=== PATIENT | female | born 1970 | race Caucasian/White ===

== ENCOUNTER 2017-01-24 23:35 | Emergency (ER) | payer MEDICAID ==
[~2017-01-24] VITALS: Ht 167.6 cm; Wt 65.8 kg
[2017-01-24 23:35] VITALS: BP 150/88; PULSE 100; RESP 20; TEMP 97.4; O2SAT 98
[~2017-01-24 23:35] MED LIST: BUSP10TA PO; CELE200C PO; ELA10; ESOM40CA PO; FERR1TAB; FERR325T30 PO; FOLI-43 PO; METH2.5T PO; NORG7TAB2 PO; PRED2.5T4; PRED5TAB PO; PRED5TAB3 PO; dexilant
--- NOTE | 2017-01-24 23:35 | NUR ---
Patient to ER bed 8 to gown for evaluation. Side rails up. Report given to SHOBHA ELDRIDGE.
--- NOTE | 2017-01-24 23:40 | NUR ---
PT IS AOX4, C/O COUGH X 2 DAYS. PT IS AFEBRILE AND DENIES N/V/D. PAIN SCALE 6/10.
--- NOTE | 2017-01-25 | NUR ---
ER at bedside examining patient.
[2017-01-25] MEDS ORDERED: AMOXICILLIN 500 MG CAPSULE PO ONE (00:45)
[2017-01-25 01:05] VITALS: BP 138/75; PULSE 86; RESP 20; TEMP 97.4; O2SAT 98
--- NOTE | 2017-01-25 01:05 | NUR ---
Patient given written and verbal discharge instructions and verbalizes understanding. ER MD discussed with patient the results and treatment provided. Patient in stable condition. ID arm band removed. Rx of AMOXICILLIN 500 MG given. Patient educated on pain management and to follow up with PMD. Pain Scale 0/10. Opportunity for questions provided and answered.
== END 2017-01-25 01:05 | disposition home or self-care (01) ==
LOC: SED 23:35
DX: J40 Bronchitis, not specified as acute or chronic (principal); M06.9 Rheumatoid arthritis, unspecified
CPT/HCPCS: 99283

== ENCOUNTER 2017-05-12 02:18 | Emergency (ER) | payer MEDICAID ==
[~2017-05-12] VITALS: Ht 167.6 cm; Wt 66.7 kg
[~2017-05-12 02:18] MED LIST changes: -ESOM40CA PO; -FOLI-43 PO; -METH2.5T PO; -NORG7TAB2 PO; -PRED5TAB PO; -PRED5TAB3 PO
[2017-05-12 02:20] VITALS: BP_SYST 133
[2017-05-12] MEDS ORDERED: KETOROLAC TROMETHAMINE 60 MG/2 ML VIAL IM ONE (03:30)
[2017-05-12 04:00] VITALS: BP_SYST 133
[2017-05-12] MEDS ORDERED: NACL 0.9% 1,000 ML IV SCH (04:00)
[2017-05-12] MEDS ORDERED: PIPERACILLIN/TAZO 3.375 GM in NS 50 ML IV SCH (06:00)
== END 2017-05-12 04:00 | disposition home or self-care (01) ==
LOC: SED 02:18
DX: S80.01XA Contusion of right knee, initial encounter (principal); M06.9 Rheumatoid arthritis, unspecified; V87.8XXA Person injured in other specified noncollision transport accidents involving motor vehicle (traffic), initial encounter; Y93.55 Activity, bike riding; Y92.89 Other specified places as the place of occurrence of the external cause; Y99.8 Other external cause status
CPT/HCPCS: 29505; 73564; 96372; 99284; J1885

== ENCOUNTER 2017-10-27 22:38 | Emergency (ER) | payer MEDICAID ==
[~2017-10-27] VITALS: Ht 167.6 cm; Wt 68.0 kg
[2017-10-27 22:43] VITALS: BP_SYST 122
[2017-10-28] MEDS ORDERED: NACL 0.9% 1,000 ML IV ONE (00:18)
[2017-10-28 00:27] LABS: BILIRUBIN,URINE NEGATIVE (NEGATIVE); BLOOD, URINE NEGATIVE (NEGATIVE); CLARITY/URINE CLEAR (CLEAR); COLOR,URINE YELLOW (YELLOW); GLUCOSE,URINE NEGATIVE (NEGATIVE); KETONES,URINE TRACE (NEGATIVE); LEUKOCYTE ESTERASE ,URINE NEGATIVE (NEGATIVE); NITRITE, URINE NEGATIVE (NEGATIVE); PROTEIN URINE NEGATIVE (NEGATIVE); UROBILINOGEN,URINE 0.2 (0.2-1.0)
[2017-10-28] MEDS ORDERED: KETOROLAC TROMETHAMINE 30 MG VIAL IVP ONE (00:30)
[2017-10-28 00:43] LABS: BASOPHILS # (AUTO) 0.1 K/uL (0.0-0.2); BASOPHILS % (AUTO) 2.4 % (0.0-2.0); EOSINOPHILS % (AUTO) 0.2 % (0.0-4.0); LYMPHOCYTES # (AUTO) 0.8 K/uL (1.0-5.5); LYMPHOCYTES % (AUTO) 14.9 % (20.5-51.5); MEAN CORPUSCULAR HEMOGLOBIN 28 pg (27-31); MEAN CORPUSCULAR HGB CONC 32 % (32-36); MEAN CORPUSCULAR VOLUME 86 fL (79.0-98.0); MONOCYTES # (AUTO) 0.7 K/uL (0.0-1.0); MONOCYTES % (AUTO) 12.1 % (1.7-9.3); NEUTROPHILS # (AUTO) 3.9 K/uL (1.8-7.7); NEUTROPHILS % (AUTO) 70.4 % (40.0-70.0); PLATELET COUNT (AUTO) 303 K/uL (130-430); RED BLOOD CELL COUNT(AUTO) 4.29 MIL/uL (4.2-6.2); RED CELL DISTRIBUTION WIDTH 13.5 % (9.0-15.0); WHITE BLOOD COUNT (AUTO) 5.5 K/uL (4.8-10.8)
[2017-10-28 00:52] LABS: CALCIUM 8.6 mg/dL (8.4-11.0); CREATININE 0.78 mg/dL (0.55-1.30); POTASSIUM 4.1 mmol/L (3.5-5.1)
[2017-10-28 02:30] VITALS: BP_SYST 125
== END 2017-10-28 02:30 | disposition home or self-care (01) ==
LOC: SED 22:38
DX: R10.9 Unspecified abdominal pain (principal); M06.9 Rheumatoid arthritis, unspecified
CPT/HCPCS: 36415; 74176; 80048; 81003; 81025; 85025; 96361; 96374; 99285; J1885; J7030

== ENCOUNTER 2018-10-31 08:27 | Emergency (ER) | payer MEDICAID ==
[~2018-10-31] VITALS: Ht 167.6 cm; Wt 68.0 kg
--- NOTE | 2018-10-31 08:30 | NUR ---
ER at bedside examining patient.
[2018-10-31 08:31] VITALS: BP_SYST 164
--- NOTE | 2018-10-31 08:37 | NUR ---
Patient to ER bed 6 to gown for evaluation. Side rails up. Report given to Glynn ELDRIDGE.
--- NOTE | 2018-10-31 09:15 | NUR ---
Pt prsents to ED c/o coughx 1 month worsening x 1month
--- NOTE | 2018-10-31 09:20 | NUR ---
Lab at bedside for evaluation
--- NOTE | 2018-10-31 10:15 | NUR ---
Patient given written and verbal discharge instructions and verbalizes understanding. ER MD discussed with patient the results and treatment provided. Patient in stable condition. ID arm band removed. Rx of prednisone given. Patient educated on pain management and to follow up with PMD. Pain Scale 0. Opportunity for questions provided and answered. Medication side effect fact sheet provided.
[2018-10-31 10:30] VITALS: BP_SYST 158
== END 2018-10-31 10:30 | disposition home or self-care (01) ==
LOC: SED 08:27
DX: J30.9 Allergic rhinitis, unspecified (principal); R05 Cough; M06.9 Rheumatoid arthritis, unspecified; Z79.899 Other long term (current) drug therapy
CPT/HCPCS: 71045; 99283

== ENCOUNTER 2022-08-07 21:57 | Emergency (ER) | payer MEDICAID ==
[~2022-08-07] VITALS: Ht 167.6 cm; Wt 77.1 kg
[2022-08-07 22:19] VITALS: BP_SYST 141
--- NOTE | 2022-08-07 22:24 | NUR ---
Patient to ER tent for evaluation.
--- NOTE | 2022-08-07 22:24 | NUR ---
patient brought by partner complaining of dry cough x5 days. Patient denies any shortness of breath, patient reports having low-grade fever of 99.2. Patient is speaking full sentences. no acute distress noted. vss
--- NOTE | 2022-08-07 22:26 | NUR ---
ER at bedside examining patient.
[2022-08-07] MEDS ORDERED: DOXY100C5 PO ×3 (22:44→22:55)
--- NOTE | 2022-08-07 23:01 | NUR ---
Patient given written and verbal discharge instructions and verbalizes understanding. ER MD discussed with patient the results and treatment provided. Patient in stable condition. ID arm band removed. Rx of doxycline given. Patient educated on pain management and to follow up with PMD. Pain Scale 0/10 Opportunity for questions provided and answered. Medication side effect fact sheet provided.
[2022-08-07 23:10] VITALS: BP_SYST 141
== END 2022-08-07 23:10 | disposition home or self-care (01) ==
LOC: SED 21:57
DX: R05.9 Cough, unspecified (principal); R50.9 Fever, unspecified; Z79.899 Other long term (current) drug therapy; Z20.822 Contact with and (suspected) exposure to COVID-19
CPT/HCPCS: 36415; 99283

== ENCOUNTER 2023-04-27 01:02 | Emergency (ER) | payer MEDICAID ==
[~2023-04-27] VITALS: Ht 167.6 cm; Wt 77.1 kg
[~2023-04-27 01:02] MED LIST changes: +DOXY100C5 PO
[2023-04-27 01:31] VITALS: BP_SYST 136
--- NOTE | 2023-04-27 01:31 | NUR ---
Triaged and placed patient back to the waiting room. No acute respiratory distress at this time. VSS. Informed patient to notify ED staff for any changes in condition or worsening of symptoms while waiting to be seen by a provider. Patient verbalized understanding.
[2023-04-27 02:15] LABS: BILIRUBIN,URINE 1+ (NEGATIVE); BLOOD, URINE NEGATIVE (NEGATIVE); COLOR,URINE YELLOW (YELLOW); GLUCOSE,URINE NEGATIVE (NEGATIVE); KETONES,URINE NEGATIVE (NEGATIVE); LEUKOCYTE ESTERASE ,URINE NEGATIVE (NEGATIVE); NITRITE, URINE NEGATIVE (NEGATIVE); PROTEIN URINE 1+ (NEGATIVE); UROBILINOGEN,URINE 0.2 (0.2-1.0)
--- NOTE | 2023-04-27 02:24 | NUR ---
Patient placed in Triage room for MD evaluation.
--- NOTE | 2023-04-27 02:25 | NUR ---
Dr. SOTELO in triage room examining the patient.
[2023-04-27 02:33] LABS: CLARITY/URINE HAZY (CLEAR)
--- NOTE | 2023-04-27 02:35 | NUR ---
Patient taken to CT.
[2023-04-27 02:42] LABS: BACTERIA,URINE None Seen /HPF (None Seen); HYALINE CASTS, URINE 0-10 /LPF (None Seen); RBC,URINE 0-3 /HPF (0-3)
--- NOTE | 2023-04-27 02:43 | NUR ---
PATIENT IS BACK FROM CT.
--- NOTE | 2023-04-27 03:02 | NUR ---
PATIENT IS TAKEN TO LABORATORY FOR A BLOOD DRAW.
--- NOTE | 2023-04-27 03:07 | NUR ---
PATIENT IS BACK FROM LABORATORY.
[2023-04-27 03:20] LABS: BASOPHILS % (AUTO) 0.3 % (0.0-2.0); EOSINOPHILS # (AUTO) 0.2 K/uL (0.0-0.4); HEMATOCRIT 36.8 % (36-48); HEMOGLOBIN 12.1 g/dL (12.0-16.0); LYMPHOCYTES # (AUTO) 2.2 K/uL (1.0-5.5); LYMPHOCYTES % (AUTO) 28.4 % (20.5-51.5); MEAN CORPUSCULAR HEMOGLOBIN 29 pg (27-31); MEAN CORPUSCULAR HGB CONC 33 % (32-36); MEAN CORPUSCULAR VOLUME 87 fL (79.0-98.0); MONOCYTES # (AUTO) 0.8 K/uL (0.0-1.0); MONOCYTES % (AUTO) 10.4 % (1.7-9.3); NEUTROPHILS # (AUTO) 4.5 K/uL (1.8-7.7); NEUTROPHILS % (AUTO) 58.9 % (40.0-70.0); PLATELET COUNT (AUTO) 322 K/uL (130-430); RED BLOOD CELL COUNT(AUTO) 4.22 MIL/uL (4.2-6.2); WHITE BLOOD COUNT (AUTO) 7.6 K/uL (4.8-10.8)
[2023-04-27] MEDS ORDERED: ONDANSETRON HCL 4 MG/2 ML VIAL IVP ONE (03:30)
[2023-04-27] MEDS ORDERED: NACL 0.9% 1,000 ML IV ONE (03:30)
[2023-04-27] MEDS ORDERED: cephALEXin 500 MG CAPSULE PO ONE (03:30)
[2023-04-27] MEDS ORDERED: TAMSULOSIN HCL 0.4 MG CAP PO ONE (03:30)
[2023-04-27] MEDS ORDERED: MORPHINE 2 MG/ML INJ. SYRINGE IVP ONE (03:30)
[2023-04-27 03:33] LABS: ALBUMIN 3.5 g/dL (3.4-4.8); CALCIUM 9.8 mg/dL (8.4-11.0); CREATININE 0.91 mg/dL (0.55-1.30); TOTAL BILIRUBIN 0.1 mg/dL (0.0-1.0)
[2023-04-27] MEDS ORDERED: TAMSULOSIN HCL 0.4 MG CAP ONE (04:01)
[2023-04-27] MEDS ORDERED: CEPH-548 PO (05:09)
[2023-04-27] MEDS ORDERED: PHEN-726 PO (05:10)
[2023-04-27] MEDS ORDERED: LIDO1ADH22 TP (05:12)
[2023-04-27] MEDS ORDERED: ACET-2634 PO (05:12)
[2023-04-27 05:45] VITALS: BP_SYST 148
--- NOTE | 2023-04-27 05:45 | NUR ---
Patient given written and verbal discharge instructions and verbalizes understanding. ER MD discussed with patient the results and treatment provided. Patient in stable condition. ID arm band removed. IV catheter removed intact and dressing applied, no active bleeding. Rx of ACETAMINOPHEN, CEPHALEXIN, LIDOPRO PATCH. AND PYRIDIUM given. Patient educated on pain management and to follow up with PMD. Pain Scale 0/10. Opportunity for questions provided and answered. Medication side effect fact sheet provided.
== END 2023-04-27 05:45 | disposition home or self-care (01) ==
LOC: SED 01:02
DX: N20.1 Calculus of ureter (principal); I10 Essential (primary) hypertension; R30.0 Dysuria; M54.50 Low back pain, unspecified; R11.0 Nausea; Z79.899 Other long term (current) drug therapy
CPT/HCPCS: 99285; 74176; 96374; 96361; 96375; 80053; 81000; 83690; 85025; 87086; 36415; 76376; J2405; J2270; J7030

== ENCOUNTER 2024-03-17 16:30 | Emergency (ER) | payer MEDICAID ==
[~2024-03-17] VITALS: Ht 167.6 cm; Wt 77.1 kg
[~2024-03-17 16:30] MED LIST changes: +ACET-2634 PO; +CEPH-548 PO; +LIDO1ADH22 TP; +PHEN-726 PO
[2024-03-17 16:45] VITALS: BP_SYST 156; PULSE 89; RESP 18; TEMP 98.3; O2SAT 100
[2024-03-17] MEDS: guaiFENesin/DEXTROMETHORPHAN 10 ML UDC PO ONE (17:21)
[2024-03-17] MEDS: AZITHROMYCIN 250 MG TABLET PO ONE (17:39)
[2024-03-17 17:52] LABS: INFLUENZA TYPE A Negative (NEGATIVE)
[2024-03-17 17:54] LABS: INFLUENZA TYPE B POSITIVE (NEGATIVE)
[2024-03-17] MEDS ORDERED: BENZ100C92 PO (17:58)
[2024-03-17] MEDS ORDERED: ZIT250 PO (17:58)
[2024-03-17] MEDS ORDERED: OSEL75CA PO (17:58)
[2024-03-17 18:05] VITALS: BP_SYST 148; PULSE 80; RESP 17; TEMP 98.3; O2SAT 99
[2024-03-17] MEDS: OSELTAMIVIR PHOSPHATE 75 MG CAPSULE PO ONE (18:05)
== END 2024-03-17 18:07 | disposition home or self-care (01) ==
LOC: SED 16:30
DX: J18.1 Lobar pneumonia, unspecified organism (principal); R05.9 Cough, unspecified; F17.200 Nicotine dependence, unspecified, uncomplicated; Z79.899 Other long term (current) drug therapy; Z20.822 Contact with and (suspected) exposure to COVID-19
CPT/HCPCS: 99284; 71045; 87426; 36415; 87804 ×2; Q0144; G9035

== ENCOUNTER 2024-03-21 00:40 | Emergency (ER) | payer MEDICAID ==
[~2024-03-21] VITALS: Ht 167.6 cm; Wt 77.1 kg
[~2024-03-21 00:40] MED LIST changes: +BENZ100C92 PO; +OSEL75CA PO; +ZIT250 PO
[2024-03-21 01:01] VITALS: BP_SYST 127; PULSE 98; RESP 20; TEMP 98.3; O2SAT 98
[2024-03-21] MEDS: AZITHROMYCIN 500 MG in NS 250 ML IV ONE (01:30)
[2024-03-21] MEDS ORDERED: AZITHROMYCIN 500 MG/VIAL (ZITHROMAX) IV ONE (01:39)
[2024-03-21] MEDS: methylPREDNISolone SOD SUCC/PF 62.5 MG/ML VIAL IVP ONE (01:42)
[2024-03-21] MEDS: cefTRIAXone 1 GM IVPB PREMIX 50 ML IV ONE (01:44)
[2024-03-21] MEDS: IPRATROPIUM/ALBUTEROL SULFATE 3 ML AMPUL.NEB (DUONEB) INH ONE (01:45)
[2024-03-21 01:49] LABS: BASOPHILS % (AUTO) 0.6 % (0.0-2.0); EOSINOPHILS % (AUTO) 0.4 % (0.0-4.0); HEMATOCRIT 36.4 % (36-48); HEMOGLOBIN 12.3 g/dL (12.0-16.0); LYMPHOCYTES # (AUTO) 1.6 K/uL (1.0-5.5); LYMPHOCYTES % (AUTO) 35.8 % (20.5-51.5); MEAN CORPUSCULAR HEMOGLOBIN 29 pg (27-31); MEAN CORPUSCULAR HGB CONC 34 % (32-36); MEAN CORPUSCULAR VOLUME 86 fL (79.0-98.0); MONOCYTES # (AUTO) 0.6 K/uL (0.0-1.0); NEUTROPHILS # (AUTO) 2.4 K/uL (1.8-7.7); NEUTROPHILS % (AUTO) 51.2 % (40.0-70.0); PLATELET COUNT (AUTO) 249 K/uL (130-430); RED BLOOD CELL COUNT(AUTO) 4.25 MIL/uL (4.2-6.2); WHITE BLOOD COUNT (AUTO) 4.6 K/uL (4.8-10.8)
[2024-03-21 01:51] LABS: BLOOD GAS PH 7.417 (7.350-7.450)
[2024-03-21 01:52] LABS: ABG O2 SAT% ESTIMATE 96.1 % (94.0-100.0); BLOOD GAS BASE EXCESS -2.9 mmol/L (-3.0-3.0); BLOOD GAS HCO3 20.6 mmol/L (21.0-27.0); BLOOD GAS PCO2 32.7 mmHg (35.0-45.0); BLOOD GAS PO2 80.2 mmHg (75.0-100.0)
[2024-03-21] MEDS: MAGNESIUM SULFATE 50 ML IV ONE (02:30)
[2024-03-21 02:31] LABS: ALBUMIN 3.5 g/dL (3.4-4.8); BILIRUBIN,DIRECT 0.1 mg/dL (0.0-0.3); CALCIUM 8.5 mg/dL (8.4-11.0); CREATININE 1.44 mg/dL (0.55-1.30); POTASSIUM 3.3 mmol/L (3.5-5.1); TOTAL BILIRUBIN 0.2 mg/dL (0.0-1.0); TOTAL PROTEIN, SERUM 7.6 g/dL (6.4-8.3)
[2024-03-21 04:48] VITALS: PULSE 98; TEMP 98.3
[2024-03-21] MEDS ORDERED: ALBMDI INH (05:51)
[2024-03-21] MEDS ORDERED: CLAR-61 PO (05:51)
[2024-03-21] MEDS ORDERED: PRED20TA PO (05:51)
[2024-03-21 05:59] VITALS: BP_SYST 125; RESP 12; O2SAT 98
== END 2024-03-21 06:08 | disposition home or self-care (01) ==
LOC: SED 00:40
DX: J44.1 Chronic obstructive pulmonary disease with (acute) exacerbation (principal); R06.02 Shortness of breath; F17.200 Nicotine dependence, unspecified, uncomplicated; Z79.899 Other long term (current) drug therapy
CPT/HCPCS: 99285; 96365; 71045; 96367; 96375; 80076; 80048; 85025; 87040; 36415; 94640; 36600; 82803; 96368; J0456; J0696; J2930; J3475

== ENCOUNTER 2024-04-17 04:14 | Emergency (ER) | payer MEDICAID ==
[~2024-04-17] VITALS: Ht 167.6 cm; Wt 77.1 kg
[~2024-04-17 04:14] MED LIST changes: +ALBMDI INH; +CLAR-61 PO; +PRED20TA PO
[2024-04-17 04:26] VITALS: BP_SYST 143; PULSE 79; RESP 17; TEMP 98.1; O2SAT 96
[2024-04-17] MEDS ORDERED: KETOROLAC TROMETHAMINE 60 MG/2 ML VIAL IM ONE (04:38)
[2024-04-17] MEDS: KETOROLAC TROMETHAMINE 60 MG/2 ML VIAL IM ONE (04:40)
[2024-04-17] MEDS ORDERED: HYDR-3927 PO (06:38)
[2024-04-17 06:45] VITALS: BP_SYST 140; PULSE 76; RESP 16; TEMP 98.4; O2SAT 96
== END 2024-04-17 06:45 | disposition home or self-care (01) ==
LOC: SED 04:14
DX: M06.9 Rheumatoid arthritis, unspecified (principal); M25.511 Pain in right shoulder; M25.512 Pain in left shoulder; F17.200 Nicotine dependence, unspecified, uncomplicated
CPT/HCPCS: 99285; 73030; 73560; 96372; J1885